=== PATIENT | female | born 1965 | race Caucasian/White ===

== ENCOUNTER 2020-10-04 09:25 | Emergency (ER) | payer SELFPAY ==
[~2020-10-04] VITALS: Ht 177.8 cm; Wt 113.4 kg
[2020-10-04 09:32] VITALS: BP 158/75
[2020-10-04 09:46] VITALS: BP 158/75
--- NOTE | 2020-10-04 09:49 | NUR ---
ED Nurse Note: pt walked in to ER from home due to under Rt ear lump and pain since yesterday. pt aao x4 and ambulatory. calm and cooperative. skin clean and intact. no cardiac or pulmonary distress noted at this time.
--- NOTE | 2020-10-04 09:51 | NUR ---
ED Nurse Note: ERMD at bedside.
--- NOTE | 2020-10-04 10:03 | NUR ---
ED Nurse Note: BS 310 reported to IAN.
[2020-10-04] MEDS ORDERED: metFORMIN 500mg tab ORAL STA (10:31)
--- NOTE | 2020-10-04 10:33 | Emergency Room Report ---
History of Present Illness General Chief Complaint: Earache Source: Patient Present Illness HPI The patient presents with pain in her right ear and right side of her neck. This began yesterday. He feels a lump in her neck that is tender. She has no trouble swallowing or breathing. She has some pain when she turns her head but it is mainly on the right-hand side. She has no pharyngeal pain with swallowing . There is no change in hearing. She denies any fevers or chills. Denies trauma. This never happened to her before. The pain is rated 8/10 and she feels it more in her neck radiating up towards her ear. The patient also has gum and teeth problems. These are more pronounced on the right-hand side. She denies pain in her jaw. She thinks that there is a slight amount of tenderness on the left-hand side also that is just beginning. There is a slight headache around the right ear. There is been no drainage. The patient also complains about pain in her heels that radiates up into her calfs. She denies any edema or hemoptysis. There is no pleuritic chest pain. She is recently changed weight and this is made the problem in her foot worse. The patient denies medical problems. When pressed she is does admit that she has been urinating more frequently but it is not constant. She does have a family history of diabetes. Patient denies exposure to COVID-19 positive contacts. No chest pain, palpitations, nausea, vomiting, diarrhea, dysuria, abdominal pain, shortness of breath, visual changes, dizziness. Allergies: Coded Allergies: No Known Allergies (Unverified , 10/04/20) COVID-19 Screening Contact w/high risk pt: No Experienced COVID-19 symptoms?: No COVID-19 Testing performed TICKETER: No Patient History Past Medical History: see triage record Pertinent Family History: DM Social History Narrative Drove herself here from home Reviewed Nursing Documentation: PMH: Agreed; PSxH: Agreed Nursing Documentation-PMH Past Medical History: No History, Except For Hx Hypertension: Yes Review of Systems All Other Systems: negative except mentioned in HPI Physical Exam Vital Signs Date Time Temp Pulse Resp B/P (MAP) Pulse Ox O2 Delivery O2 Flow Rate FiO2 10/04/20 09:32 99.1 78 19 158/75 (102) 96 Room Air Sp02 EP Interpretation: reviewed, normal General Appearance: well appearing, no apparent distress, GCS 15, non-toxic, obese Head: normocephalic Eyes: bilateral eye normal inspection, bilateral eye PERRL, bilateral eye EOMI ENT: moist mucus membranes - Poor dentition Neck: full range of motion, supple, no meningismus, other - No submandibular swelling, tender - Right side of neck slightly posterior to sternocleidomastoid muscle Respiratory: chest non-tender, lungs clear, normal breath sounds Cardiovascular #1: regular rate, rhythm, no edema Cardiovascular #2: 2+ radial (R) Gastrointestinal: normal inspection, normal bowel sounds, overweight Musculoskeletal: gait/station normal, normal range of motion Neurologic: alert, grossly normal Psychiatric: mood/affect normal Skin: normal color, no rash Lymphatic: adenopathy - Right neck Medical Decision Making Diagnostic Impression: Primary Impression: Lymphadenitis Additional Impressions: Hyperglycemia Plantar fasciitis ER Course The patient presents with pain in her right neck with tender adenopathy with poor dentition. Differential includes lymphadenitis, otitis externa, otitis media, dental abscess amongst others. There is no evidence of Vincent's angina at this time. There is no evidence of otitis media or otitis externa. Mastoid is not tender at this time which excludes mastoiditis. There is no evidence of meningitis. Analgesics and antibiotics are indicated. Based on her exam plantar fasciitis is also suspected. Concern of possible elevated blood glucose with family history as well as obesity. Accu-Chek will be obtained. Accucheck 310. Will start on metformin. Discussed checking blood glucose and how to check her blood sugar and need for follow up. She is familiar with checking blood sugar as her mother had to do so. There is a concern as she does not have a private physician at this time. As we are starting metformin I advised her to return to the emergency department if she is not doing well in 1 to 2 days time. The dose of metformin is low however this can be increased if needed in the future. Patient pain improved with treatments. No medical emergency at this time. Patient stable for outpatient observation and treatment. Last Vital Signs Date Time Temp Pulse Resp B/P (MAP) Pulse Ox O2 Delivery O2 Flow Rate FiO2 10/04/20 11:09 98.8 91 19 98 Room Air 10/04/20 09:46 158/75 Status: improved Disposition: HOME, SELF-CARE Condition: Improved Scripts Metformin Hcl* (METFORMIN HCL*) 500 Mg Tablet 250 MG ORAL DAILY for Diabetes Mellitus for 30 Days, #30 TAB Prov: Ray Garrett MD 10/04/20 Blood-Glucose Meter (BLOOD GLUCOSE METER) 1 Each Each EACH MC DAILY, #1 Prov: Ray Garrett MD 10/04/20 Blood Sugar Diagnostic (BLOOD GLUCOSE TEST) 1 Each Strip EACH MC DAILY, #60 Prov: Ray Garrett MD 10/04/20 Lancets (ACCU-CHEK FASTCLIX) 1 Each Each EACH MC DAILY, #1 Prov: Ray Garrett MD 10/04/20 Acetaminophen (Tylenol) 325 Mg Tablet 650 MG ORAL Q6H PRN for Prn Pain/Headache/Temp > 101, #20 TAB 0 Refills Prov: Ray Garrett MD 10/04/20 Ibuprofen* (MOTRIN*) 600 Mg Tablet 600 MG ORAL Q6H PRN for FOR PAIN, #20 TAB 0 Refills Prov: Ray Garrett MD 10/04/20 Doxycycline Monohydrate* (DOXYCYCLINE MONOHYDRATE*) 100 Mg Capsule 100 MG ORAL Q12H, #14 CAP 0 Refills Prov: Ray Garrett MD 10/04/20 Referrals: NOT CHOSEN IPA/,REFERRING (PCP) Ray Garrett MD Oct 04, 2020 10:33
[2020-10-04] MEDS ORDERED: Doxycycline Monohydrate 100mg ORAL ONE (10:45)
[2020-10-04] MEDS ORDERED: DOXYCYCLINE MO100 MG ORAL (11:05)
[2020-10-04] MEDS ORDERED: BLOOD GLUCOSE1 EACH MC (11:05)
[2020-10-04] MEDS ORDERED: IBUPROFEN600 M1 ORAL (11:05)
[2020-10-04] MEDS ORDERED: TYLENOL325 MG ORAL (11:05)
[2020-10-04] MEDS ORDERED: ACCU-CHEK FAST1 EACH MC (11:05)
[2020-10-04] MEDS ORDERED: BLOOD GLUCOSE1 EAC1 MC (11:05)
--- NOTE | 2020-10-04 11:10 | NUR ---
ED Nurse Note: Pt cleared by health care Provider for discharge. DC instructions/prescription was given and explained to pt and verbalized understanding of teachings. All medical deviecs such as ID band removed. Pt is AAO x4, ambulatory and left with all personal belongings.
[2020-10-04] MEDS ORDERED: METFORMIN HCL500 M1 ORAL (11:11)
== END 2020-10-04 11:14 | disposition home or self-care (01) ==
LOC: EMR 09:54
DX: I88.9 Nonspecific lymphadenitis, unspecified (principal); R73.9 Hyperglycemia, unspecified; M72.2 Plantar fascial fibromatosis; I10 Essential (primary) hypertension
CPT/HCPCS: 82962; 99283

== ENCOUNTER 2020-10-11 11:28 | Emergency (ER) | payer OTHER ==
[~2020-10-11] VITALS: Ht 157.5 cm; Wt 103.4 kg
[~2020-10-11 11:28] MED LIST: ACCU-CHEK FAST1 EACH MC; BLOOD GLUCOSE1 EAC1 MC; BLOOD GLUCOSE1 EACH MC; DOXYCYCLINE MO100 MG ORAL; IBUPROFEN600 M1 ORAL; METFORMIN HCL500 M1 ORAL; TYLENOL325 MG ORAL
[2020-10-11 11:34] VITALS: BP 158/88
--- NOTE | 2020-10-11 11:48 | NUR ---
ED Nurse Note: Patient presents to ER due to swelling/tender area on the right lateral side of neck radiating to the face. Seen by us on 10/04/20 and completed antibiotics. Patient reports that the size of swelling has been decreased, but still having pain. Reports no fever, chills, N/V or D. Reports no cough, loss of taste or smell. Patient awake, alert, oriented x 4. Regular, unlabored breathing noted.
--- NOTE | 2020-10-11 11:59 | NUR ---
ED Nurse Note: Patient able to tolerate oral intake. Last seen by dentist 7 years ago.
[2020-10-11] MEDS ORDERED: AUGMENTIN 875-1 EAC1 ORAL (12:07)
[2020-10-11] MEDS ORDERED: DOXYCYCLINE MO100 MG ORAL (12:07)
[2020-10-11] MEDS ORDERED: TYLENOL EXTRA500 MG ORAL (12:07)
[2020-10-11] MEDS ORDERED: METFORMIN HCL500 M1 ORAL (12:07)
--- NOTE | 2020-10-11 12:07 | Emergency Room Report ---
History of Present Illness General Chief Complaint: Skin Rash/Abscess Source: Patient, Significant Other Present Illness HPI 54F PMHx DM HLD obesity presents for medication refill. Patient was seen on 10-04-2020 in the ED and discharged with doxycycline. She reports dramatic improvement of symptoms with abx but has run out and is wondering if she requires more abx. States she still has R facial pain anterior to her ear and swollen lymph nodes in her neck. She is also requesting metformin med refill. Denies stridor, fever, FAIR, drooli ng, vision changes, difficulty swallowing, neck pain, rash, photophobia, n/v/d, CP, SOB The patient's symptoms were gradual onset, severity was moderate, duration since 10 days. Quality: aching Past medical history: DM HLD Past surgical history: Denies Smoking: Denies Alcohol use: Denies Drug use: Denies Review of systems: CONST: No fevers or chills, No night sweats PULMONARY: No productive cough, No shortness of breath CARDIAC: No chest pain, No palpitations GI: No vomiting, No diarrhea , No melena_or_BRBPR : No dysuria, No hematuria, No discharge NEURO: No new_focal_weakness_or_numbness, No confusion, No vision changes 14 point Review of Systems is otherwise negative except per HPI Physical Exam: GENERAL: Awake_alert_ nontoxic, no acute distress Spo2 98% on RA -normal EYES: Extraocular muscles are intact. Conjunctivae clear. Lids without swelling. PERRLA. No proptosis or hyphema. No chemosis or nystagmus ENT: Extremely poor dentition. Multiple dental caries. Many missing teeth. No periapical abscess. No submandibular swelling. No stridor, hoarse voice, dysphonia, or drooling. No evidence of ludwigs angina. No tripoding. No TTP of trachea. External nose and ear normal_in_appearance. Oropharynx clear. Head_atraumatic, Moist_oral_mucosa NECK: ++R postauricular and preauricular LAD. No JVD. No meningismus. No thyromegaly. Supple. Trachea midline RESP: Normal respiratory effort. Symmetric rise. No stridor. Clear_to_auscultation_No_rales_No_wheezes Speaks in full and complete sentences. CARDIAC: Regular rate and regular rhytm. No_significant pedal edema. ABDOMEN: Soft. Nondistended. Nontender_No_rebound_or_guarding. MSK: Normal muscle tone, without rigidity. Extremities without asymmetric deformity or swelling. SKIN: Warm and dry. No visible cyanosis or pallor NEUROLOGIC: Alert, oriented x3. Motor_and_sensation_grossly_intact. No truncal ataxia. Gait_normal Psych: Normal mood and affect, normal judgment and insight - COORDINATION OF CARE Case was discussed with: Patient Any labs and imaging that were ordered were interpreted as part of the medical decision making: Medical Decision Making/Plan: DDx: facial cellulitis vs lymphadenitis vs apical abscess vs AOM/otitis externa Chart reviewed. Patient was seen 1 week ago and diagnosed with lymphadenitis and dc with doxycycline. Swelling has almost entirely resoled. Bilateral face is nearly symmetric with trace swelling to the R cheek and R pre-auricular LAD. Oropharyngeal exam demonstrates multiple dental cavities. No signs of impending airway compromise, submandibular cellulitis, or deep space neck infection. Patient is well appearing, afebrile, and able to tolerate PO. No nuchal rigidity. Accucheck is 333. Patient was counseled extensively on lifestyle and diet modification. Will refill her home metformin and have her follow up with PMD for chronic management of her DM. She will be instructed to f/u with dental clinic for tooth extraction 2/2 dental cavity. No dental/apical abscess visualized. Pertinent results reviewed with the patient. I educated the patient on the current treatment plan including the risks, benefits, and alternatives. I also discussed the extent and limitations of the current evaluation. The patient expressed understanding and agreement with plan. I recommended PMD follow-up within 1-2 days. Also advised that the patient return to the Emergency Department as soon as possible if they experience any new, persistent, or worsening symptoms. 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 Nursing Documentation-PMH Hx Hypertension: Yes Physical Exam Vital Signs Date Time Temp Pulse Resp B/P (MAP) Pulse Ox O2 Delivery O2 Flow Rate FiO2 10/11/20 11:34 97.2 78 18 158/88 (111) 95 Room Air Sp02 EP Interpretation: reviewed, normal Medical Decision Making Diagnostic Impression: Primary Impression: Hyperglycemia Additional Impressions: Lymphadenitis Diabetes Dental cavities Last Vital Signs Date Time Temp Pulse Resp B/P (MAP) Pulse Ox O2 Delivery O2 Flow Rate FiO2 10/11/20 11:34 97.2 78 18 158/88 (111) 95 Room Air Disposition: HOME, SELF-CARE Admit Decision Time: 12:04 Condition: Stable Scripts Acetaminophen* (TYLENOL EXTRA STRENGTH*) 500 Mg Tablet 500 MG ORAL Q8H PRN for Prn Headache/Temp > 101, #30 TAB 0 Refills Prov: Lisandra Pham D.O. 10/11/20 Doxycycline Monohydrate* (DOXYCYCLINE MONOHYDRATE*) 100 Mg Capsule 100 MG ORAL Q12H, #14 CAP 0 Refills Prov: Lisandra Pham D.O. 10/11/20 Metformin Hcl* (METFORMIN HCL*) 500 Mg Tablet 500 MG ORAL TWICE A DAY, #30 TAB Prov: Lisandra Pham D.O. 10/11/20 Amoxicillin/Potassium Clav 875-125* (AUGMENTIN 875-125 TABLET*) 1 Each Tablet 1 TAB ORAL TWICE A DAY, #14 TAB Prov: Lisandra Pham D.O. 10/11/20 Patient Instructions: Dental Abscess, Lymphadenopathy, Peritonsillar Cellulitis Additional Instructions: Instructions for patient/glazier stained glass: Follow up with your physician in 1-2 days for wound check if you are not im proving or new symptoms. Go to your primary care doctor for management of your diabetes and referral to dentist for tooth extraction. You need to eat healthy and try to get 30 mins of exercise a day x 3 days a week. Follow-up with your doctor sooner if your condition requires a more timely clinical reevaluation. Return to the emergency department immediately if you feel that your condition is worsening or if you have any new or concerning symptoms. Review your discharge instructions and take any prescriptions given as instructed. [facility] PROVIDES FREE OR LOW-COST HEALTH SERVICES TO PEOPLE WHO CAN SHOW PROOF THAT THEY LIVE IN [facility]. TO FIND MORE CLINICS PARTNERED WITH THE [facility] TO PROVIDE SERVICE, PLEASE CALL . Lisandra Pham D.O. Oct 11, 2020 12:07
--- NOTE | 2020-10-11 12:11 | NUR ---
ER DISCHARGE NOTE: Patient is cleared to be discharged per ERMD. D/C instruction and prescriptions given to patient. All questions were answered. Patient verbalized understanding of it. ID band removed. Patient agreed to f/u with PCP/dentist. Patient ambulated out with steady gait with all her belongings.
== END 2020-10-11 12:08 | disposition home or self-care (01) ==
LOC: EMR 11:50
DX: E11.65 Type 2 diabetes mellitus with hyperglycemia (principal); I88.9 Nonspecific lymphadenitis, unspecified; K02.9 Dental caries, unspecified; E78.5 Hyperlipidemia, unspecified; I10 Essential (primary) hypertension; Z79.84 Long term (current) use of oral hypoglycemic drugs
CPT/HCPCS: 82962; 99283